=== PATIENT | male | born 1960 | race Caucasian/White ===

== ENCOUNTER 2020-07-14 06:11 | Day surgery (SDC) | payer OTHER ==
[~2020-07-14] VITALS: Ht 180.3 cm; Wt 69.9 kg
[2020-07-14 06:40] VITALS: BP 108/74; PULSE 75; TEMP 97.4
[2020-07-14 08:05] VITALS: BP 97/73; PULSE 67
--- NOTE | 2020-07-14 08:10 | NUR ---
PATIENT TRANSPORTED PER CART TO DUNSTABLE 6 ACCOMPANIED BY ENDO STAFF. PATIENT AMBULATED WITH STEADY GAIT FROM CART TO CHAIR WITH 1 ASSIST. PATIENT DENIES DISCOMFORT AND NAUSEA. VERBAL REPORT RECEIVED. PATIENT GIVEN COFFEE AND MUFFIN TO EAT.
[2020-07-14 08:15] VITALS: BP 106/67; PULSE 68; TEMP 97.3
[2020-07-14 08:30] VITALS: BP 103/75; PULSE 75
--- NOTE | 2020-07-14 08:30 | NUR ---
VSS ON ROOM AIR. PATIENT TOLERATES COFFEE AND MUFFIN WITHOUT PROBLEMS. SPEAKS WITH PATIENT.
--- NOTE | 2020-07-14 08:40 | NUR ---
VSS ON ROOM AIR. PATIENT TALKING WITH STAFF. IV SITE DC'D WITH CATHETER TIP INTACT. PRESSURE AND BANDAGE APPLIED. DISCHARGE INSTRUCTIONS GIVEN VERBAL AND DISCHARGE PACKET GIVEN TO PATIENT. QUESTIONS ANSWERED AND PATIENT VOICED UNDERSTANDING. PATIENT CHANGES TO STREET CLOTHES. [id number] PATIENT DICHARGED PER WHEEL CHAIR ACCOMPANIED BY ENDO STAFF TO PRIVATE VECHILE. DRIVING.
[2020-07-14 08:45] VITALS: BP 107/71; PULSE 60
[2020-07-14 08:53] VITALS: BP 103/66; PULSE 69
== END 2020-07-14 09:58 ==
LOC: SDCO 06:11
DX: Z12.11 Encounter for screening for malignant neoplasm of colon (principal); D12.0 Benign neoplasm of cecum; D12.5 Benign neoplasm of sigmoid colon; K62.1 Rectal polyp; K21.9 Gastro-esophageal reflux disease without esophagitis; F17.210 Nicotine dependence, cigarettes, uncomplicated; Z20.828 Contact with and (suspected) exposure to other viral communicable diseases
CPT/HCPCS: J2704; J7030